=== PATIENT | male | born 1985 | race Caucasian/White ===

== ENCOUNTER 2019-11-25 15:55 | Emergency (ER) | payer BC, SELFPAY ==
[2019-11-25 15:57] VITALS: BP 151/97; PULSE 218; RESP 24; TEMP 36.7; O2SAT 100; BMI 38.0
--- NOTE | 2019-11-25 16:00 | XR_ITS ---
PROCEDURE: XR CHEST PORTABLE CLINICAL HISTORY: palpitations COMPARISON: CXR1 CHEST-PORTABLE from 07/01/2016 FINDINGS: There is mild prominence of the cardiac silhouette. No evidence Of CHF. The lungs are clear bilaterally. No acute bony abnormalities. IMPRESSION: Mild cardiomegaly otherwise negative Dictated by: Akin Mccracken MD 11/25/2019 16:29 Electronically signed by Akin Mccracken MD in [place] 11/25/2019 16:29
[2019-11-25 16:05] VITALS: BP 149/109; PULSE 93; RESP 20; O2SAT 96
--- NOTE | 2019-11-25 16:09 | ECG_ITS ---
APPROVED REPORT Exam: Resting ECG HR:89 bpm ECG Measurements Heart Rate 89 AXES MD 154 P 20 QRSd 102 QRS 15 QT 334 T 23 QTc 406 <Conclusion> Normal sinus rhythm Incomplete right bundle branch block Borderline ECG Electronically signed by : Brayan Olivares, 11/29/2019 17:33:40
[2019-11-25 16:13] LABS: Chloride 98 mmol/L (98-107); Sodium 138 mmol/L (136-145)
[2019-11-25 16:14] LABS: Basophils # 0.1 K/mm3 (0-0.2); Basophils % 0.8 % (0.1-2.0); Eosinophils # 0.3 K/mm3 (0.0-0.4); Hematocrit 45.5 % (42.0-52.0); Hemoglobin 15.1 g/dL (14.1-18.0); Lymphocytes # 3.4 K/mm3 (0.7-4.5); Lymphocytes % 33.6 % (10-50); Mean Corpuscular HGB Conc 33.1 g/dL (31.8-35.4); Mean Corpuscular Volume 90.4 fl (80-94); Mean Platelet Volume 8.3 fl (7.4-10.4); Monocytes # 0.6 K/mm3 (0.1-1.0); Monocytes % 6.4 % (1.7-9.3); Neutrophils # 5.7 K/mm3 (1.8-7.8); Neutrophils % 56.3 % (37.0-80.0); Platelet Count 360 K/mm3 (142-424); Potassium 3.8 mmoL/L (3.5-5.1); Red Blood Count 5.03 M/mm3 (4.60-6.20); Red Cell Distribution Width 12.6 % (11.5-17.5); White Blood Count 10.2 K/mm3 (4.8-10.8)
[2019-11-25 16:16] LABS: Alanine Aminotransferase 40 U/L (12-78); Albumin Level 4.4 g/dl (3.5-5.0); Alkaline Phosphatase 60 U/L (38-126); Anion Gap 17.8 mEq/L (5-15); Aspartate Amino Transferase 37 U/L (17-59); Bilirubin,Indirect 0.4 mg/dL (0.0-0.9); Bilirubin,Total 0.4 mg/dl (0.2-1.3); Bilirubin,Unconjugated 0.5 mg/dL (0.0-1.1); Blood Urea Nitrogen 16 mg/dl (9-20); Calcium 9.3 mg/dl (8.4-10.2); Carbon Dioxide 26 mmol/L (22.0-30.0); Creatinine Clearance Estimated 136 mL/min (50-200); Estimated Glomerular Filt Rate 59 ml/min (>60); GFR (African American) 71 ML/MIN (>60); Glucose 104 mg/dl (74-100)
[2019-11-25 16:17] LABS: Total Protein,Serum 7.6 g/dl (6.3-8.2)
[2019-11-25 16:33] VITALS: BP 153/91; PULSE 95; RESP 20; O2SAT 96
[2019-11-25 16:37] LABS: Troponin I < 0.01 ng/ml (0.00-0.034)
--- NOTE | 2019-11-25 17:04 | HMH.EDARPALP ---
ED Disposition Clinical Impression: Palpitations, Anxiety, Sinus tachycardia Disposition: Home, Self-Care Condition on Discharge: Good Instructions: Cardiac Arrhythmia (Alternative Therapy) Additional Instructions: If symptoms do persist please follow back up in the emergency department Prescriptions: Metoprolol Succinate [Metoprolol Succinate 25mg Tablet*] 25 mg PO DAILY 30 Days #30 tab Transmission Status: Pending to [id number] Referrals: Provider,Referral, MD [Primary Care Provider] - - Critical Care Critical Care Time: Yes (10 min, cardioversion) Attestation: On 11/25/19, the high probability of a clinically significant, sudden or life threatening deterioration of the following system(s) required my full and direct attention, intervention and personal management. The time I documented below is in addition to time spent performing reported procedures but includes the following listed in this critical care notation. Total Critical Care Time: 10 Vital system(s) involved:: Circulatory Failure My critical care processes included: Assessment & monitoring of V/S, Initial and Re-exams, Data Review/Interpretation, Coordinating Care, Medication Orders and management, Documentation Medical Decision Making - Medical Records Medical records reviewed: Yes: I reviewed the patient's medical records. - Arnie Inquiry Pt receiving controlled substance: No Vital Signs: 11/25/19 15:57 11/25/19 16:05 11/25/19 16:33 Temperature 98.1 F Temperature Source Oral Pulse Rate [Right Radial] 218 H 93 H 95 H Respiratory Rate 24 20 20 Blood Pressure [Right Arm] 151/97 H 149/109 H 153/91 H Blood Pressure Mean [Right Arm] 115 122 111 Blood Pressure Source [Right Arm] Automatic Cuff Blood Pressure Position [Right Arm] Sitting 02 Sat by Pulse Oximetry 100 96 96 Oxygen Delivery Method Room Air Room Air - Lab Data Lab results reviewed: Yes: I reviewed the patient's lab results. Lab Results 11/25/19 15:57: WBC 10.2, RBC 5.03, Hgb 15.1, Hct 45.5, MCV 90.4, MCH 30.0, MCHC 33.1, RDW 12.6, Plt Count 360, MPV 8.3, Neut % (Auto) 56.3, Lymph % (Auto) 33.6, Moore % (Auto) 6.4, Eos % (Auto) 3.0, Baso % (Auto) 0.8, Neut # (Auto) 5.7, Lymph # (Auto) 3.4, Moore # (Auto) 0.6, Eos # (Auto) 0.3, Baso # (Auto) 0.1 11/25/19 15:57: Sodium 138, Potassium 3.8, Chloride 98, Carbon Dioxide 26, Anion Gap 17.8 H, BUN 16, Creatinine 1.40 H, Estimated Creat Clear 136, Estimated GFR 59, Est GFR ( Amer) 71, Glucose 104 H, Calcium 9.3, Total Bilirubin 0.4, Direct Bilirubin 0.0, Conjugated Bilirubin 0.0, Indirect Bilirubin 0.4, Unconjugated Bilirubin 0.5, AST 37, ALT 40, Alkaline Phosphatase 60, Troponin I < 0.01, Total Protein 7.6, Albumin 4.4 Result diagrams: 11/25/19 15:57 11/25/19 15:57 Orders (Tests/Meds): ED MEDICATIONS Generic Name Dose Route Start Last Admin Trade Name Freq PRN Reason Stop Dose Admin Sodium Chloride 1,000 mls @ 999 mls/hr 11/25/19 16:15 11/25/19 16:14 Sod Chlor 0.9% 1000ml Bag IV 11/25/19 17:15 999 mls/hr .Q1H1M KIRBY Administration Discontinued Medications Generic Name Dose Route Start Last Admin Trade Name Freq PRN Reason Stop Dose Admin Labetalol HCl 5 mg 11/25/19 16:01 11/25/19 16:01 Labetalol 5mg/Ml 20ml Mdv IV 11/25/19 16:02 5 mg ONCE ONE Administration Metoprolol Succinate 25 mg 11/25/19 16:11 11/25/19 16:14 Toprol Xl 25mg Tablet PO 11/25/19 16:12 25 mg ONCE ONE Administration ORDERS Category Date Time Status Troponin I Q3H Lab 11/25/19 19:00 Ordered Troponin I Q3H Lab 11/25/19 22:00 Ordered - Radiology Data #1 Image(s): Chest Image Reviewed: Yes I reviewed the patient's radiology image w/the ED provider Preliminary Findings: Normal/NAD - ECG Data Tracing #1 I reviewed this ECG and interpreted as documented below: ECG normal with no acute: arrhythmias, ischemia, conduction abnormalities, chamber hypertrophy Arrhythmias prese
[2019-11-25 17:17] VITALS: BP 154/87; PULSE 100; RESP 20; TEMP 36.6; O2SAT 98
== END 2019-11-25 17:24 | disposition home or self-care (01) ==
PROVIDERS: Emergency Provider Family Medicine
DX: I47.1 Supraventricular tachycardia (principal); F41.9 Anxiety disorder, unspecified
CPT/HCPCS: 71045; 80048; 80076; 84484; 85025; 93005; 96365; 96375; 99284

== ENCOUNTER 2021-03-27 12:53 | Emergency (ER) | payer SELFPAY ==
--- NOTE | 2021-03-27 14:14 | HMH.EDUTC ---
[facility] Dis[place] Clinical Impression: Exposure to COVID-19 virus Disposition: Home, Self-Care Condition on Discharge: Good Instructions: Preventing the Spread of Coronavirus Discharge Instructions Additional Instructions: Drink plenty of fluids. Take tylenol for pain or fever. Return if you begin to have difficulty breathing. Follow up with your regular doctor. GO TO THE ER FOR ANY WORSENING SYMPTOMS Quarantine until you know the results of your covid-19 test. If it is positive, the health department should call you and give you further instructions about your length of Quarantine and other things. Notify your school or workplace of your results and follow their instructions regarding return to work/school. Referrals: Provider,Referral, [Primary Care Provider] - Forms: Work/School Release Time of Disposition: 14:18 Medical Decision Making - Medical Records Medical records reviewed: No: I reviewed the patient's medical records. - Arnie Inquiry Pt receiving controlled substance: No Vital Signs: 03/27/21 14:28 03/27/21 14:31 Temperature 98.2 F 98.5 F Temperature Source Oral Oral Pulse Rate 70 Respiratory Rate 18 16 Blood Pressure 112/78 Blood Pressure [Right Arm] 112/78 Blood Pressure Mean [Right Arm] 89 Blood Pressure Source Automatic Cuff Blood Pressure Source [Right Arm] Automatic Cuff Blood Pressure Position Sitting Blood Pressure Position [Right Arm] Sitting 02 Sat by Pulse Oximetry 98 Oxygen Delivery Method Room Air Room Air [facility] H[place] - General Stated complaint: covid test Time Seen by Provider: 03/27/21 14:14 - History of Present Illness Provider Complaint: He denies any symptoms so far. He states that his has had covid symptoms since yesterday. - Related Data Previous Rx's Medication Instructions Recorded Metoprolol Succinate [Metoprolol 25 mg PO DAILY 30 Days #30 tab 11/25/19 Succinate 25mg Tablet*] Allergies Allergy/AdvReac Type Severity Reaction Status Date / Time No Known Allergies Allergy Unverified 07/23/17 14:48 [facility] History - Hepatitis A Screen Attestation statement:: This patient has been screened for Hepatitis A risk factors. I have reviewed the patient's past medical history: Yes ROS Obtained: Yes All systems reviewed & no additional complaints - Constitutional Constitutional: Reports system reviewed and no additional complaints, except as docu - Eyes Eyes: Reports system reviewed and no additional complaints, except as docu - ENT Ears, Nose, Mouth, and Throat: Reports system reviewed and no additional complaints, except as docu - Cardiovascular Cardiovascular: Reports system reviewed and no additional complaints, except as docu - Respiratory Respiratory: Reports system reviewed and no additional complaints, except as docu - Gastrointestinal Gastrointestingal: Reports: system reviewed and no additional complaints, except as docu Physical Exam - General General appearance: alert, in no apparent distress - Head Head exam: atraumatic, normocephalic, normal inspection - Eye Eye exam: Present: normal appearance, PERRL, EOMI - ENT ENT exam: Present: normal exam, normal oropharynx, mucous membranes moist, TM's normal bilaterally, normal external ear exam - Neck Neck exam: Present: normal inspection, full ROM, trachea midline. Absent: meningismus, lymphadenopathy - Chest Chest inspection: Present: normal inspection, symmetric chest wall rise. Absent: tenderness - Respiratory Respiratory exam: Present: normal lung sounds bilaterally. Absent: respiratory distress - Cardiovascular Cardiovascular exam: Present: regular rate, normal rhythm. Absent: JVD - Abdominal Exam Abdominal exam: Present: soft, normal bowel sounds. Absent: distention, tenderness, guarding - Extremities Exam Extremities exam: Present: normal inspection, full ROM, normal capillary refill. Absent: calf tenderness - B
[2021-03-27 14:28] VITALS: BP 112/78; RESP 18; TEMP 36.8; O2SAT 98; BMI 28.7
[2021-03-27 14:31] VITALS: BP 112/78; PULSE 70; RESP 16; TEMP 36.9; O2SAT 98
--- NOTE | 2021-03-27 18:39 | PC.NURSE ---
notified pt of positive covid results
== END 2021-03-27 14:32 | disposition home or self-care (01) ==
PROVIDERS: Emergency Provider Nurse Practitioner Family
DX: U07.1 COVID-19 (principal)
CPT/HCPCS: 99202; G0463; U0003

== ENCOUNTER 2023-10-21 06:38 | Day surgery (SDC) | payer OTHER, SELFPAY ==
[2023-10-17 10:34] VITALS: BMI 35.2
[2023-10-21] VITALS (7 sets, daily range): BP systolic 124–168; BP diastolic 64–88; PULSE 80–105; RESP 14–18; TEMP 36.6–43; O2SAT 91–96
[2023-10-21] MEDS: LACTATED RINGERS 1000ML 1,000 ML 100 ML IV (06:58)
--- NOTE | 2023-10-21 07:31 | EXP.ANES.CKL ---
[facility] Disclaimer: The information contained in this section may have been updated after the patient was seen, as this information can be updated by other users. Medical History History of COVID-19 Family History Other No significant family history Social History (Updated 10/17/23 @ 10:34 by Jamilah Enrique RN) Smoking Status: Former smoker alcohol intake: never substance use type: denies use current occupational status: employed Travel in the last 8 weeks: None [facility] Anesthesia Checklist Patient Identification Patient Identification: Arm Band Structural Data Admitted From: Home Planned Operative Procedure/s: Vasectomy Consent for Planned Operative Procedure(s) Verified: Yes Verified Documents: Surgical Consent and History and Physical NPO Status Verified Time NPO: 00:00 Additional verifications Anesthesia Reactions: No Hx Blood Transfusions: No Blood Transfusion Reaction: No Airway Assessment Mallampati Score:: Class II C-Spine Mobility Assessed: Yes TMJ Mobility Assessed: Yes Dentition: Good Dentition Neurological Assessment Level of Consciousness: Awake and Alert Anesthesia Plan Anesthesia Risk discussed: Yes Anesthesia Plan: Verified ASA Class: II Anesthesia Type: MAC
[2023-10-21] MEDS: BUPIVACAINE 0.5% 30ML VIAL 150 MG (08:18)
--- NOTE | 2023-10-29 14:31 | P.PCN_ITS ---
[facility] Procedure Note Date: 10/21/23 Procedure Note:: S/P Vasectomy Details: Preop diagnosis: Elective sterilization Postop diagnosis: Elective sterilization Operation: Vasectomy Operative note: The patient was brought to the operating room. LMAC anesthesia was administered and he was prepped and draped using a sterile technique. The patient's vas deferens was picked up between the thumb and forefinger first on the right side and then on the left side. The vasectomies were done identical on the left and the right side. Skin incision was made over the vas deferens after the vas was grasped and held in place with a towel clip. The external spermatic fascia was incised and the vas deferens was exposed. The patient did have some vascularity and slight bleeding of the vas requiring the Bovie and ligation. The distal and proximal end of the vas deferens were ligated with 0 silk. A small section of vas deferens was removed and submitted to pathology for identification. The cut ends of the vas were lightly fulgurated. Hemostasis was assured. The vas deference was drop back into the scrotal compartment. The scrotal skin was closed with interrupted 3-0 chromic. The patient tolerated the procedure well. The estimated blood loss was less than 10 cc.
== END 2023-10-21 09:43 | disposition home or self-care (01) ==
PROVIDERS: Visit Provider Urology
PROC: (CPT 55250; principal; 2023-10-21 08:15)
DX: Z98.52 Vasectomy status (principal)
CPT/HCPCS: 55250; J2704